=== PATIENT | female | born 1980 | race Caucasian/White ===

== ENCOUNTER 2016-10-29 12:33 | Emergency (ER) | payer OTHER ==
[2016-10-29 12:44] VITALS: RESP 18
--- NOTE | 2016-10-29 13:38 | ED ---
Skin/Abscess/FB HPI - General Chief complaint: Skin/Abscess/Foreign Body Stated complaint: Female Time Seen by Provider: 10/29/16 13:02 Source: patient, RN notes reviewed Mode of arrival: ambulatory Limitations: no limitations - History of Present Illness Initial comments: 36-year-old female presents to the emergency Department chief complaint of ingrown hairs. Patient states that she developed an ingrown hair under her left armpit and into the left groin. Patient states she has noticed some drainage from the areas. Patient states his been no fever or chills. Patient denies any increased redness running the areas. Patient states she's never had MRSA. Patient states she was concerned due to the findings so she thought that she should be evaluated.Patient denies any recent fever, chills, shortness of breath, chest pain, back pain, abdominal pain, nausea vomiting, numbness or tingling, dysuria or hematuria, constipation or diarrhea, headaches or visual changes, or any other current symptoms. - Related Data Previous Rx's Medication Instructions Recorded Sulfamethox-Tmp 800-160Mg [Bactrim 2 each PO Q12HR #56 tab 10/29/16 DS 800-160 mg] Allergies Allergy/AdvReac Type Severity Reaction Status Date / Time No Known Allergies Allergy Verified 10/29/16 12:44 Review of Systems ROS Statement: Those systems with pertinent positive or pertinent negative responses have been documented in the HPI. ROS Other: All systems not noted in ROS Statement are negative. Past Medical History Past Medical History: No Reported History History of Any Multi-Drug Resistant Organisms: None Reported Past Surgical History: No Surgical Hx Reported Past Psychological History: No Psychological Hx Reported Smoking Status: Never smoker Past Alcohol Use History: Rare Past Drug Use History: None Reported General Exam Limitations: no limitations General appearance: alert, in no apparent distress ENT exam: Present: normal exam, mucous membranes moist Neck exam: Present: normal inspection. Absent: tenderness, meningismus, lymphadenopathy Respiratory exam: Present: normal lung sounds bilaterally. Absent: respiratory distress, wheezes, rales, rhonchi, stridor Cardiovascular Exam: Present: regular rate, normal rhythm, normal heart sounds. Absent: systolic murmur, diastolic murmur, rubs, gallop, clicks Neurological exam: Present: alert, oriented X3 Psychiatric exam: Present: normal affect, normal mood Skin exam: Present: warm, dry, other (She appears to have an ingrown hair to the left armpit as well as to the left inguinal area. There does appear to be some fluctuation.) Course Vital Signs 10/29/16 12:41 Temperature 97.9 F Pulse Rate 78 Respiratory 18 Rate Blood Pressure 131/85 O2 Sat by Pulse 98 Oximetry Procedures - Procedures Initial comment: Left armpit: The area was cleaned and prepped, a 18-gauge needle was used to excise the wound, purulent material was extracted. Left groin: The area was cleaned and prepped, 18-gauge needle was used to excise the wound, purulent material was extracted Medical Decision Making - Medical Decision Making 36-year-old female presents emergency Department chief complaint of what appears to be a folliculitis. This time we will start patient on Bactrim. We did discuss return parameters care follow-up. We discussed all the patient's questions. She states she understood the plan. She will be discharged home. Disposition Clinical Impression: Acute folliculitis Disposition: HOME SELF-CARE Condition: Stable Instructions: Folliculitis (ED) Additional Instructions: Please use medication as discussed. Please follow up with family doctor if symptoms have not improved over the next two days. Please return to the emergency room if your symptoms increase or worsen or for any other concerns. Prescriptions: Sulfamethox-Tmp 800-160Mg [Bactrim DS 800-160 mg] 2 each PO Q12HR #56 tab Referrals: Yoli Contreras MD [STAFF PHYSICIAN] - 1-2 days Time of Disposition: 13:37
[2016-10-29 13:57] VITALS: BP 148/80; PULSE 66; TEMP 98.2
== END 2016-10-29 13:56 | disposition home or self-care (01) ==
LOC: EC 12:33
DX: L73.9 Follicular disorder, unspecified (principal)
CPT/HCPCS: 10160; 99282